=== PATIENT | female | born 1985 | race Hispanic/Latino ===

== ENCOUNTER 2018-10-26 18:11 | Emergency (ER) | payer SELFPAY ==
[~2018-10-26] VITALS: Ht 152.4 cm; Wt 95.3 kg
[2018-10-26] MEDS ORDERED: ONDANSETRON HCL INJ 2 MG/ML VIAL IV STA (20:19)
[2018-10-26] MEDS ORDERED: FAMOTIDINE 20 MG/2 ML VIAL IV STA (20:21)
[2018-10-26] MEDS ORDERED: SODIUM CHLORIDE 0.9% 1000ML 1,000 ML IV ONE (20:30)
== END 2018-10-26 21:52 | disposition home or self-care (01) ==
LOC: FSED 18:11
DX: R19.7 Diarrhea, unspecified (principal); A04.4 Other intestinal Escherichia coli infections
CPT/HCPCS: 80053; 80307; 81003; 85025; 99283; J7030